=== PATIENT | female | born 1965 | race Caucasian/White ===

== ENCOUNTER 2020-05-20 14:12 | Emergency (ER) | payer OTHER, SELFPAY ==
[2020-05-20 14:24] VITALS: BP 112/79; PULSE 95; RESP 18; TEMP 36.8; O2SAT 100
[2020-05-20 14:46] VITALS: BP 124/65; PULSE 69; RESP 20; O2SAT 100
[2020-05-20 15:12] LABS: Basophils Percent Auto 0.2 % (0.2-1.2); Eosinophils Percent Auto 0.9 % (0-4.4); Hematocrit 42.7 % (37.0-47.0); Hemoglobin 13.7 g/dL (12.0-15.0); Immature Granulocyte Absolute 0.01 K/mm3 (0.00-0.031); Immature Granulocyte Percent A 0.2 % (0-0.5); Lymphocytes Percent Auto 24.2 % (18.3-44.2); Mean Corpuscular HGB Conc 32.1 g/dl (32-36); Mean Corpuscular Hemoglobin 27.2 pg (26-34); Mean Corpuscular Volume 84.9 fl (80-100); Mean Platelet Volume 10.2 fl (7.4-10.4); Monocytes Absolute Auto 0.4 K/mm3 (0.1-0.6); Monocytes Percent Auto 9.5 % (2.6-8.5); Platelet Count Result 263 k/mm3 (150-375); Red Blood Count 5.03 M/mm3 (4.2-5.4); Red Cell Distribution Width 12.4 % (11.5-14.5); White Blood Count 4.6 K/mm3 (4.5-10.0)
[2020-05-20 15:24] LABS: Prothrombin Time 12.6 Seconds (11.1-14.7)
[2020-05-20 15:25] LABS: Partial Thromboplastin Time 26.1 SECONDS (22.3-36.8)
[2020-05-20 15:26] LABS: Alanine Aminotransferase 22 U/L (4-35); Albumin Level 4.2 g/dL (3.5-5.1); Alkaline Phosphatase 70 U/L (38-126); Aspartate Amino Transferase 29 U/L (14-36); Bilirubin,Total 0.7 mg/dL (0.2-1.3); Blood Urea Nitrogen 15 mg/dL (7-17); Calcium 8.7 mg/dL (8.4-10.2); Carbon Dioxide 26 mmol/L (22-30); Chloride 104 mmol/L (98-107); Estimated CRCL calculation 49 ml/min; Estimated Glomerular Filt Rate > 60; Glucose 99 mg/dL (65-105); Lipase 79 U/L (23-300); Potassium 3.6 mmol/L (3.4-5.0); Sodium 139 mmol/L (137-145)
[2020-05-20] MEDS: SODIUM CHLORIDE 0.9% IV 1,000 ML 999 ML IV CONT (15:53)
[2020-05-20] MEDS: ONDANSETRON INJ 4 MG/2 ML VIAL IV PUSH (16:00)
[2020-05-20 16:01] VITALS: BP 136/60; PULSE 78; RESP 20; O2SAT 100
--- NOTE | 2020-05-20 16:25 | ED.NAVMDI ---
HPI - Nausea/Vomiting/Diarrhea General Chief complaint: Nausea/Vomiting/Diarrhea Stated complaint: Nausea, Positive COVID Two Weeks Ago Time Seen by Provider: 05/20/20 14:51 History of Present Illness HPI Narrative: Patient is a 55-year-old female who presents the ER with complaints of abdominal discomfort and nausea. Patient was diagnosed with COVID-19 on 05/16 after being exposed to her son. Come to town from [place] and [place] his roommate was COVID positive but had not received their test back yet. Patient reports she had had symptoms for over a week when she initially got in her test. Patient's main symptoms were fatigue and loss of smell and occasional body aches. She has been afebrile since her test. She is just concerned something versus occurring. She reports she is post be released from her COVID on this today. Patient also reports some left lateral abdominal pain that is been ongoing for 2 months. Unknown cause, no aggravating or alleviating factors. Related Data Allergies Allergy/AdvReac Type Severity Reaction Status Date / Time amoxicillin Allergy Unknown Rash Verified 05/20/20 14:29 Review of Systems Review of Systems: All systems reviewed & are unremarkable except as noted in HPI and below Constitutional: Constitutional: Denies chills, Reports fatigue, Denies fever(s) and Denies weakness ENT: Denies nasal congestion and Denies sore throat Respiratory: Respiratory: Denies cough, Denies dyspnea and Denies wheezing Gastrointestinal: Gastrointestinal: Reports abdominal pain, Denies diarrhea, Reports nausea and Denies vomiting PMFSH Past Medical History Medical History (Updated 05/20/20 @ 17:22 by Tigre Vang MD) No pertinent past medical history Surgical History Surgical History (Updated 05/20/20 @ 16:27 by Tigre Vang MD) History of Family History Family History (Updated 06/18/16 @ 23:19 by DOCTOR UNKNOWN) Mother Hypertension Family history of diabetes mellitus in first degree relative Social History Social History Smoking status: Never smoker Second hand tobacco smoke exposure: No Alcohol intake: current Gender identity (if verbalized by the patient): Female Exam Narrative: Exam Narrative: GENERAL: Well-appearing, well-nourished, and in no acute distress. HEAD: Normocephalic, atraumatic. ENT: Mucous membranes moist. CHEST: Clear to auscultation. No respiratory distress. HEART: Regular rate and rhythm. Normal peripheral pulses. ABDOMEN: Soft, nontender, nondistended. EXTREMITIES: Normal range of motion. No edema. SKIN: Warm, dry, no rash. NEURO: Alert and oriented x3. Course Course Emergency Course: Informed of results. Discharge home with antibiotics for UTI. Vital Signs Vital signs: Vital Signs Temperature 98.3 F 05/20/20 14:24 Pulse Rate 95 05/20/20 14:24 Respiratory Rate 18 05/20/20 14:24 Blood Pressure 112/79 05/20/20 14:24 Pulse Oximetry 100 05/20/20 14:24 Temperature 98.3 F 05/20/20 14:24 Pulse Rate 78 05/20/20 16:01 Respiratory Rate 20 05/20/20 16:01 Blood Pressure 136/60 05/20/20 16:01 Pulse Oximetry 100 05/20/20 16:01 MDM - Nausea/Vomiting/Diarrhea Lab Data Result diagrams: 05/20/20 15:05 05/20/20 15:05 Labs: Lab Results 05/20/20 05/20/20 05/20/20 Range/Units 15:05 15:05 15:05 WBC 4.6 (4.5-10.0) K/mm3 RBC 5.03 (4.2-5.4) M/mm3 Hgb 13.7 (12.0-15.0) g/dL Hct 42.7 (37.0-47.0) % MCV 84.9 (80-100) fl MCH 27.2 (26-34) pg MCHC 32.1 (32-36) g/dl RDW 12.4 (11.5-14.5) % Plt Count 263 (150-375) k/mm3 MPV 10.2 (7.4-10.4) fl Immature Gran % (Auto) 0.2 (0-0.5) % Neut % (Auto) 65.0 (45.5-73.1) % Lymph % (Auto) 24.2 (18.3-44.2) % [place] % (Auto) 9.5 H (2.6-8.5) % Eos % (Auto) 0.9 (0-4.4) % Baso % (Auto) 0.2 (0.2-1.2) % Lymph # (Auto) 1.10 (0.9-3.2) K/mm3 [place] # (Auto) 0.4
[2020-05-20 16:57] LABS: Add Urine Microscopic? YES; Appearance Urine Clear (Clear); Bacteria Urine 2+ /hpf; Bilirubin Urine Negative (Negative); Blood Urine Negative (Negative); Color Urine Straw (Yellow); Glucose Urine UA Negative (Negative); Ketones Urine 1+ mg/dL (Negative); Leukocyte Esterase Ur Trace LEU/UL (Negative); Mucus Urine Rare /lpf; Nitrate Urine Negative (Negative); Protein Urine Negative (Negative); RBC Urine 0-2 /hpf (0-2); Specific Grav Ur 1.008 (1.001-1.035); Squamous Epithelial Cell Urine Moderate /hpf (Few); Urobilinogen Urine Negative mg/dL (<2.0)
[2020-05-20 17:00] VITALS: PULSE 70; RESP 20; O2SAT 100
[2020-05-20 18:16] VITALS: BP 112/66; PULSE 71; RESP 20; O2SAT 100
== END 2020-05-20 18:18 | disposition home or self-care (01) ==
PROVIDERS: Emergency Provider Emergency Medicine; PCP Family Medicine
DX: N39.0 Urinary tract infection, site not specified (principal)
CPT/HCPCS: 36415; 80053; 81001; 83605; 83690; 85025; 85610; 85730; 87086; 96361; 96374; 99284; J2405; J7030

== ENCOUNTER 2020-08-24 12:57 | Emergency (ER) | payer OTHER, SELFPAY ==
[2020-08-24 13:00] VITALS: BP 134/70; PULSE 88; RESP 20; TEMP 36.8; O2SAT 100
[2020-08-24 13:23] LABS: Add Urine Microscopic? NO; Appearance Urine Clear (Clear); Bacteria Urine Trace /hpf; Bilirubin Urine Negative (Negative); Blood Urine Negative (Negative); Color Urine Straw (Yellow); Glucose Urine UA Negative (Negative); Ketones Urine Negative (Negative); Leukocyte Esterase Ur Negative LEU/UL (Negative); Mucus Urine Rare /lpf; Nitrate Urine Negative (Negative); Protein Urine Negative (Negative); RBC Urine 0-2 /hpf (0-2); Specific Grav Ur 1.009 (1.001-1.035); Squamous Epithelial Cell Urine Rare /hpf (Few); Urobilinogen Urine Negative mg/dL (<2.0); WBC Urine 0-3 /hpf
--- NOTE | 2020-08-24 14:14 | ED.GENADULT ---
HPI - General Adult General Chief complaint: Urogenital-Female Stated complaint: frequent urination Time Seen by Provider: 08/24/20 12:59 History of Present Illness HPI narrative: Patient is 55-year-old female who presents to the ER for concerns of UTI. Reports the last couple days she has had frequent urination. No dysuria. No fevers or chills or sweats. No blood in her urine or discoloration. She also reports she has had some mild headache that improves with some ibuprofen. Related Data Home Medications Medication Instructions Recorded Confirmed No Home Medications 08/24/20 08/24/20 Allergies Allergy/AdvReac Type Severity Reaction Status Date / Time amoxicillin Allergy Unknown Rash Verified 08/24/20 13:08 Review of Systems Constitutional: Constitutional: Denies chills, Denies fever(s) and Denies weakness ENT: Denies nasal congestion and Denies sore throat Gastrointestinal: Gastrointestinal: Reports abdominal pain, Denies nausea and Denies vomiting Genitourinary: Genitourinary: Denies hematuria, Reports nocturia and Denies dysuria Neurologic: Reports headache(s), Denies focal weakness and Denies numbness PMFSH Past Medical History Medical History (Updated 08/24/20 @ 14:21 by Tigre Vang MD) No pertinent past medical history Surgical History Surgical History (Updated 05/20/20 @ 16:27 by Tigre Vang MD) History of Family History Family History (Updated 06/18/16 @ 23:19 by DOCTOR UNKNOWN) Mother Hypertension Family history of diabetes mellitus in first degree relative Social History Social History Smoking status: Never smoker Second hand tobacco smoke exposure: No Alcohol intake: current Gender identity (if verbalized by the patient): Female Exam Narrative: Exam Narrative: GENERAL: Well-appearing, well-nourished, and in no acute distress. HEAD: Normocephalic, atraumatic. CHEST: Clear to auscultation. No respiratory distress. HEART: Regular rate and rhythm. Normal peripheral pulses. ABDOMEN: Soft, nontender, nondistended. EXTREMITIES: Normal range of motion. No edema. NEURO: Alert and oriented x3. Course Course Emergency Course: UA negative. Declined additional pain medication for mild frontal headache. Recommend follow-up with PCP should symptoms persist. Tylenol and ibuprofen for headache at home. Vital Signs Vital signs: Vital Signs Temperature 98.2 F 08/24/20 13:00 Pulse Rate 88 08/24/20 13:00 Respiratory Rate 20 08/24/20 13:00 Blood Pressure 134/70 08/24/20 13:00 Pulse Oximetry 100 08/24/20 13:00 Temperature 98.2 F 08/24/20 13:00 Pulse Rate 88 08/24/20 13:00 Respiratory Rate 20 08/24/20 13:00 Blood Pressure 134/70 08/24/20 13:00 Pulse Oximetry 100 08/24/20 13:00 Medical Decision Making Vital Signs Vital Signs: Vital Signs Temperature 98.2 F 08/24/20 13:00 Pulse Rate 88 08/24/20 13:00 Respiratory Rate 20 08/24/20 13:00 Blood Pressure 134/70 08/24/20 13:00 Pulse Oximetry 100 08/24/20 13:00 Temperature 98.2 F 08/24/20 13:00 Pulse Rate 88 08/24/20 13:00 Respiratory Rate 20 08/24/20 13:00 Blood Pressure 134/70 08/24/20 13:00 Pulse Oximetry 100 08/24/20 13:00 Lab Data Labs: Lab Results 08/24/20 Range/Units 13:10 Urine Color Straw (Yellow) Urine Appearance Clear (Clear) Urine pH 7.0 (5.0-9.0) Ur Specific [place] 1.009 (1.001-1.035) Urine Protein Negative (Negative) mg/dL Urine Glucose (UA) Negative (Negative) mg/dL Urine Ketones Negative (Negative) mg/dL Ur Blood (Man) Negative (Negative) Urine Nitrate Negative (Negative) Urine Bilirubin Negative (Negative) Urine Urobilinogen Negative (<2.0) mg/dL Leukocyte Esterase Rfl Negative (Negative) MICHELLE/UL Urine RBC 0-2 (0-2) /hpf Urine WBC 0-3 /hpf Ur Squamous Epith Cells Rare (Few) /hpf Urine Bacteria Trace /hpf Urine Mucus Rare /lpf
--- NOTE | 2020-08-24 14:33 | PC.NURSE ---
this RN to bedside to discharge patient. patient not found in ED room 14 or in department. patient left prior to receiving discharge paperwork. MD aware.
== END 2020-08-24 14:35 | disposition home or self-care (01) ==
PROVIDERS: Emergency Provider Emergency Medicine; PCP Family Medicine
DX: R51.9 Headache, unspecified (principal)
CPT/HCPCS: 81003; 99283

== ENCOUNTER 2020-11-07 11:17 | Outpatient (CLI) | payer OTHER, SELFPAY ==
--- NOTE | ~2020-11-07 | MMUS_ITS ---
EXAMINATION: MM diagnostic lakhwinder BI w collette, US breast LT complete HISTORY: Six-month follow-up for probably benign left breast masses TECHNIQUE: Craniocaudal, mediolateral, and mediolateral oblique 3-D tomosynthesis images of the erlin ts were performed and synthetic 2-D images were generated. CAD analysis was submitted and interpreted . High resolution complete left breast ultrasound was performed including all four quadrants and the subareolar region. COMPARISON: 12/18/2019, 06/08/2019, 05/16/2019, 05/15/2018, 05/04/2017, 05/13/2013 BREAST PARENCHYMAL COMPOSITION: The breasts are heterogeneously dense, which may obscure small masses . FINDINGS: MAMMOGRAPHIC FINDINGS: Multiple stable bilateral breast masses are present. No new suspicious architectural distortion or ca lcification are identified. Scattered benign-appearing calcifications are present. ULTRASOUND: There are multiple stable hypoechoic masses of the left breast. The largest is a 1.7 x 1.1 cm oval, b ilobed, complex cystic and solid mass at the 3:00 location 6 cm from the nipple with posterior acoust ic enhancement and no internal vascularity. The mass demonstrates a stable eccentric solid component which is unchanged over multiple prior ultrasounds. There is a 3 mm round, circumscribed, hypoechoic mass with no posterior features or internal vascularity at the 2:00 location 2 cm from the nipple. IMPRESSION: 1. Probably benign left breast masses. 2. Recommend 6 month follow-up left diagnostic mammogram and ultrasound are recommended. BI-RADS category 3, probably benign findings. Reviewed, dictated and finalized at location A. NO ENFORCEMENT AGENT IMPRESSION: 1. Probably benign left breast masses. 2. Recommend 6 month follow-up left diagnostic mammogram and ultrasound are rec ommended. BI-RADS category 3, probably benign findings.
== END 2020-11-07 11:18 | disposition home or self-care (01) ==
LOC: ANHIMG 11:19
PROVIDERS: PCP Family Medicine; Visit Provider Physician Assistant
DX: R92.8 Other abnormal and inconclusive findings on diagnostic imaging of breast (principal)
CPT/HCPCS: 76641; 77062; 77066; G0279

== ENCOUNTER → 2021-02-09 10:21 | Outpatient (CLI) | payer OTHER, SELFPAY ==
--- NOTE | ~2021-02-09 | US_ITS ---
US abdomen complete EXAMINATION: US Abdomen Complete INDICATION: Generalized abdominal pain PROCEDURE: Realtime High Resolution abdomen ultrasound. COMPARISON: No prior studies for comparison FINDINGS: There are gallstones. Common bile duct measures 3.8 mm. Liver echotexture within normal limits without focal mass. Pancreas within normal limits. Pancreati c tail is obscured by bowel gas. Spleen is unremarkeable. Renal echotexture is within normal limits bilaterally without hydronephrosis, contour deforming mass or renal stone. There are bilateral renal cysts, largest in the left kidney measuring 2.1 cm. Right kidney measures 8.7 cm. Left kidney measure s 10.2 cm. Visualized aspects of the aorta and IVC are within normal limits. Portal vein is patent. No sonograph ic Aburto's sign indicated by the technologist. IMPRESSION: 1: Cholelithiasis. 2: Bilateral renal cysts. Reviewed, dictated and finalized at location A.
== END ==
PROVIDERS: PCP Family Medicine; Visit Provider Physician Assistant
DX: R10.9 Unspecified abdominal pain (principal); K80.20 Calculus of gallbladder without cholecystitis without obstruction; N28.1 Cyst of kidney, acquired
CPT/HCPCS: 76700

== ENCOUNTER 2021-02-25 17:02 | Outpatient (CLI) | payer OTHER, SELFPAY | END 2021-02-25 17:03 | disposition home or self-care (01) | LOC: ANHCOVIDVC 17:02 | PROVIDERS: PCP Family Medicine | DX: Z23 Encounter for immunization (principal) | CPT/HCPCS: 0001A; 91300 ==

== ENCOUNTER 2021-03-18 16:56 | Outpatient (CLI) | payer OTHER, SELFPAY | END 2021-03-18 16:57 | LOC: ANHCOVIDVC 16:56 | PROVIDERS: PCP Family Medicine | DX: Z23 Encounter for immunization (principal) | CPT/HCPCS: 0002A; 91300 ==

== ENCOUNTER 2021-04-05 00:01 | Emergency (ER) | payer OTHER, SELFPAY ==
[2021-04-05 00:03] VITALS: BP 104/50; PULSE 81; RESP 18; TEMP 36.1; O2SAT 100
--- NOTE | 2021-04-05 00:42 | PC.NURSE ---
Pt presents to ED with complaints of nausea, emesis and diarrhea. Pt states she that she was on the toilet having an episode of diarrhea when she loc. Pt states she hit her head and now has a hematoma to right forehead. No laceration or open wounds noted to head or face. Pt has complains of nausea at this time and has no further complaints or concerns at this time. at bedside. Pt alert and oriented x4 and vitals are stable. Pt in no obvious distress at this time. Call button and personal items within reach. Pt advised to press call button for assistance.
--- NOTE | 2021-04-05 00:53 | ED.GENADULT ---
HPI - General Adult General Chief complaint: Nausea/Vomiting/Diarrhea Stated complaint: think I have food poisoning. Time Seen by Provider: 04/05/21 00:53 History of Present Illness HPI narrative: Patient 56-year-old female who presents to emergency department chief complaint of nausea vomiting and diarrhea. Patient reports she ate some [employer] earlier this evening and then started having a diarrhea patient states that she became lightheaded had a brief syncopal episode struck her head had no loss of consciousness the patient states afterwards she then started having multiple episodes of vomiting. The patient reports been able to keep fluids down states she feels very dehydrated patient denies abdominal pain. Patient denies fever patient denies being on blood thinners Related Data Allergies Allergy/AdvReac Type Severity Reaction Status Date / Time amoxicillin Allergy Unknown Rash Verified 04/05/21 00:08 Review of Systems Review of Systems: Narrative: A 10 system review of systems was completed on the patient and is negative except for what is stated in the HPI. Nursing and ancillary documentation was reviewed. PMFSH Past Medical History Medical History No pertinent past medical history Surgical History Surgical History History of Family History Family History Mother Hypertension Family history of diabetes mellitus in first degree relative Social History Social History Smoking status: Never smoker Second hand tobacco smoke exposure: No Alcohol intake: current Substance use: never Gender identity (if verbalized by the patient): Female Exam Narrative: Exam Narrative: GENERAL: Well-appearing, well-nourished, and in no acute distress. HEAD: Normocephalic, there is a small contusion present to the right forehead. EYES: PERRLA and EOMI. ENT: Nares clear, no rhinorrhea or epistaxis. Mucous membranes moist. NECK: Supple. CHEST: Clear to auscultation. No respiratory distress. HEART: Regular rate and rhythm. No murmur heard. Normal peripheral pulses. ABDOMEN: Soft, nontender, nondistended, normal active bowel sounds. EXTREMITIES: Normal range of motion. No edema. SKIN: Warm, dry, no rash. NEURO: No focal deficits. Alert and oriented x3. PSYCH: Normal mood and affect. Course Vital Signs Vital signs: Vital Signs Temperature 36.1 C L 04/05/21 00:03 Pulse Rate 81 04/05/21 00:03 Respiratory Rate 18 04/05/21 00:03 Blood Pressure 104/50 L 04/05/21 00:03 Pulse Oximetry 100 04/05/21 00:03 Temperature 37.7 C H 04/05/21 01:31 Pulse Rate 77 04/05/21 02:28 Respiratory Rate 20 04/05/21 02:28 Blood Pressure 97/60 L 04/05/21 02:28 Pulse Oximetry 100 04/05/21 02:28 Medical Decision Making Vital Signs Vital Signs: Vital Signs Temperature 36.1 C L 04/05/21 00:03 Pulse Rate 81 04/05/21 00:03 Respiratory Rate 18 04/05/21 00:03 Blood Pressure 104/50 L 04/05/21 00:03 Pulse Oximetry 100 04/05/21 00:03 Temperature 37.7 C H 04/05/21 01:31 Pulse Rate 77 04/05/21 02:28 Respiratory Rate 20 04/05/21 02:28 Blood Pressure 97/60 L 04/05/21 02:28 Pulse Oximetry 100 04/05/21 02:28 Lab Data Result diagrams: 04/05/21 01:06 04/05/21 01:06 Labs: Lab Results 04/05/21 04/05/21 04/05/21 Range/Units 01:06 01:06 02:18 WBC 13.1 H (4.5-10.0) K/mm3 RBC 4.85 (4.2-5.4) M/mm3 Hgb 13.3 (12.0-15.0) g/dL Hct 42.0 (37.0-47.0) % MCV 86.6 (80-100) fl MCH 27.4 (26-34) pg MCHC 31.7 L (32-36) g/dl RDW 13.1 (11.5-14.5) % Plt Count 272 (150-375) k/mm3 MPV 10.5 H (7.4-10.4) fl Immature Gran % (Auto) 0.5 (0-0.5) % Neut % (Auto)
--- NOTE | 2021-04-05 00:55 | PC.NURSE ---
EDMD presented to bedside.
[2021-04-05 01:19] LABS: Basophils Percent Auto 0.2 % (0.2-1.2); Eosinophils Absolute Auto 0.1 K/mm3 (0-0.3); Eosinophils Percent Auto 0.7 % (0-4.4); Hemoglobin 13.3 g/dL (12.0-15.0); Immature Granulocyte Absolute 0.06 K/mm3 (0.00-0.031); Immature Granulocyte Percent A 0.5 % (0-0.5); Lymphocytes Absolute Auto 0.77 K/mm3 (0.9-3.2); Lymphocytes Percent Auto 5.9 % (18.3-44.2); Mean Corpuscular HGB Conc 31.7 g/dl (32-36); Mean Corpuscular Hemoglobin 27.4 pg (26-34); Mean Corpuscular Volume 86.6 fl (80-100); Mean Platelet Volume 10.5 fl (7.4-10.4); Monocytes Absolute Auto 0.6 K/mm3 (0.1-0.6); Monocytes Percent Auto 4.7 % (2.6-8.5); Neutrophils Absolute Auto 11.5 K/mm3 (1.3-6.7); Platelet Count Result 272 k/mm3 (150-375); Red Blood Count 4.85 M/mm3 (4.2-5.4); Red Cell Distribution Width 13.1 % (11.5-14.5); White Blood Count 13.1 K/mm3 (4.5-10.0)
[2021-04-05 01:27] LABS: Alanine Aminotransferase 18 U/L (4-35); Albumin Level 4.6 g/dL (3.5-5.1); Alkaline Phosphatase 60 U/L (38-126); Anion Gap 6 mmol/L (8-16); Aspartate Amino Transferase 28 U/L (14-36); Bilirubin,Total 0.8 mg/dL (0.2-1.3); Blood Urea Nitrogen 22 mg/dL (7-17); Calcium 9.4 mg/dL (8.4-10.2); Carbon Dioxide 27 mmol/L (22-30); Chloride 105 mmol/L (98-107); Estimated CRCL calculation 49 ml/min; Estimated Glomerular Filt Rate > 60; Glucose 126 mg/dL (65-105); Lipase 90 U/L (23-300); Potassium 4.1 mmol/L (3.4-5.0); Sodium 138 mmol/L (137-145)
[2021-04-05] MEDS: SODIUM CHLORIDE 0.9% IV 2,000 ML 999 ML IV CONT (01:27)
[2021-04-05] MEDS: ONDANSETRON INJ 4 MG/2 ML VIAL IV PUSH (01:28)
[2021-04-05 01:31] VITALS: BP 109/53; PULSE 64; RESP 15; TEMP 37.7; O2SAT 100
--- NOTE | 2021-04-05 01:31 | PC.NURSE ---
Pt ambulated in hill to restroom to provide urine specimen.
[2021-04-05 02:28] VITALS: BP 97/60; PULSE 77; RESP 20; O2SAT 100
--- NOTE | 2021-04-05 02:29 | PC.NURSE ---
Pt states that she feels better and denies nausea and emesis at this time. PO challenge in progress.
--- NOTE | 2021-04-05 02:30 | PC.NURSE ---
EDMD presented to bedside to update pt on poc. Call button and personal items within reach.
[2021-04-05 02:41] LABS: Add Urine Microscopic? YES; Appearance Urine Cloudy (Clear); Bacteria Urine Trace /hpf; Bilirubin Urine Negative (Negative); Blood Urine 1+ (Negative); Calcium Oxalate Crystals Urine Present /hpf; Color Urine Yellow (Yellow); Glucose Urine UA Negative (Negative); Ketones Urine 1+ mg/dL (Negative); Leukocyte Esterase Ur Trace LEU/UL (Negative); Mucus Urine Moderate /lpf; Nitrate Urine Negative (Negative); Protein Urine 1+ mg/dL (Negative); RBC Urine 0-2 /hpf (0-2); Specific Grav Ur 1.027 (1.001-1.035); Squamous Epithelial Cell Urine Rare /hpf (Few); Urobilinogen Urine Negative mg/dL (<2.0)
--- NOTE | 2021-04-05 03:10 | PC.NURSE ---
EDMD presented to bedside to update pt on poc and all questions and concerns addressed.
--- NOTE | 2021-04-05 03:10 | PC.NURSE ---
Pt tolerate PO challenge well. No nausea and emesis noted. Pt resting on cart and remain at bedside. vitals are stable and pt in n obvious distress.
--- NOTE | 2021-04-05 03:21 | PC.NURSE ---
Pt ambulated in hill to restroom with steady gait and is now back in room resting on cart in its lowest position. Call button and personal items within reach. Pt advised to press call button for assistance.
[2021-04-05 03:57] VITALS: BP 103/65; PULSE 78; RESP 19; TEMP 36.8; O2SAT 98
[2021-04-05 03:59] VITALS: BP 103/65; PULSE 78; RESP 19; TEMP 36.8; O2SAT 98
== END 2021-04-05 04:07 | disposition home or self-care (01) ==
PROVIDERS: Emergency Provider Emergency Medicine; PCP Family Medicine
DX: R55 Syncope and collapse (principal); S09.90XA Unspecified injury of head, initial encounter; W01.10XA Fall on same level from slipping, tripping and stumbling with subsequent striking against unspecified object, initial encounter; R82.998 Other abnormal findings in urine
CPT/HCPCS: 36415; 80053; 81001; 83690; 85025; 87086; 87088; 96361; 96374; 99284; J2405; J7030

== ENCOUNTER 2021-07-02 13:19 | Outpatient (CLI) | payer OTHER, SELFPAY ==
--- NOTE | ~2021-07-02 | MMUS_ITS ---
EXAMINATION: MM diagnostic lakhwinder LT w collette, US breast LT limited HISTORY: Follow-up left breast masses TECHNIQUE: Additional 3-D tomosynthesis images of the left breast were performed and synthetic 2-D im ages were generated. CAD analysis was submitted and interpreted. High resolution Limited left breast ultrasound was performed. COMPARISON: Comparison to multiple prior studies sequentially, with oldest reviewed study dated 05/04. BREAST PARENCHYMAL COMPOSITION: The breasts are heterogenously dense, which may obscure small masses. FINDINGS: MAMMOGRAPHIC FINDINGS: There are multiple left breast masses which are partially obscured by fibroglandular tissue. There ar e scattered benign-appearing calcifications. No architectural distortion is identified. ULTRASOUND: Left breast ultrasound: At 2:00, 2 cm from the nipple, there is a round hypoechoic mass with subtle p osterior acoustic enhancement measuring 11 x 10 x 10 mm. No internal vascularity. At the same locatio n there is an oval hypoechoic mass measuring 4 mm with parallel orientation, no significant posterior features or internal vascularity. The largest dominant mass at 2:00 has diminished in size compared with prior examination dated 06/08/2019. The smaller lesion is unchanged. At 3:00, 2 cm from the nippl e, there is an oval hypoechoic mass measuring 7 mm without significant posterior features or internal vascularity, unchanged. This mass is unchanged. At 3:00, 6 cm from the nipple there is an oval hypoe choic mass measuring 7 mm without significant posterior features or internal vascularity. At 6:00, 5 cm from the nipple there is a 3 mm cyst. IMPRESSION: 1. Stable benign-appearing left breast masses by mammography and ultrasound. No evidence for malignan cy. 2. Routine yearly screening mammogram and regular clinical breast examination are recommended. BI-RADS Category 2: Benign finding(s). Reviewed, dictated and finalized at location A. IMPRESSION: 1. Stable benign-appearing left breast masses by mammography and ultrasound. No evidence for malignancy. 2. Routine yearly screening mammogram and regular clinical breast examination a re recommended. BI-RADS Category 2: Benign finding(s).
== END 2021-07-02 13:20 | disposition home or self-care (01) ==
LOC: ANHIMG 13:21
PROVIDERS: PCP Family Medicine; Visit Provider Physician Assistant
DX: R92.8 Other abnormal and inconclusive findings on diagnostic imaging of breast (principal)
CPT/HCPCS: 76642; 77061; 77065; G0279

== ENCOUNTER 2022-04-12 09:39 | Outpatient (CLI) | payer OTHER, SELFPAY ==
--- NOTE | ~2022-04-12 | DEXA_ITS ---
Bone Density Report Name: EMIGDIO RAMOS Age: 57 Sex: Female Ethnicity: White Date of : 1965 Indication: osteopenia; postmenopausal Referring Provider: CYNTHIA ROCHA Study: Bone densitometry was performed. Exam Date: April 12, 2022 Accession number: [id number] Bone Density: Region BMD T-score Z-score Classification AP Spine(L1-L4) 0.779 -2.4 -1.2 Osteopenia Femoral Neck (Left) 0.685 -1.5 -0.3 Osteopenia Total Hip (Left) 0.848 -0.8 0.1 Normal Femoral Neck (Right) 0.659 -1.7 -0.5 Osteopenia Total Hip (Right) 0.877 -0.5 0.3 Normal Total Hip Mean 0.862 -0.7 0.2 Normal World Health Organization criteria for BMD impression classify patients as: Normal (T-score at or above -1.0), Osteopenia (T-score between -1.0 and -2.5), or Osteoporosis (T-score at or below -2.5). 10-year Fracture Risk(1): Major Osteoporotic Fracture 7.1% Hip Fracture 0.8% Reported Risk Factors: [place] (), Neck BMD=0.659, BMI=20.2 (1) FRAX(R) Version 3.08. Fracture probability calculated for an untreated patient. Fracture probability may be lower if the patient has received treatment. Previous Exams: Region Exam Age BMD T-score BMD Change BMD Change Date g/cm2 vs Baseline vs Previous AP Spine (L1-L4) 04/12/2022 57 0.779 -2.4 -0.076 (-8.8%) -0.033 (-4.1%) 09/10/2019 54 0.812 -2.1 -0.042 (-5.0%) -0.042 (-5.0%) 11/01/2016 51 0.855 -1.7 Total Hip(Left) 04/12/2022 57 0.848 -0.8 -0.035 (-4.0%) -0.084 (-9.0%) 09/10/2019 54 0.931 -0.1 0.049 (5.5%)* 0.049 (5.5%)* 11/01/2016 51 0.882 -0.5 Total Hip(Right) 04/12/2022 57 0.877 -0.5 0.005 (0.6%) -0.019 (-2.2%) 09/10/2019 54 0.896 -0.4 0.025 (2.8%) 0.025 (2.8%) 11/01/2016 51 0.872 -0.6 *Denotes significance at 95% confidence level, LSC for AP Spine = 0.022 g/cm2, LSC for Total Hip = 0.027 g/cm2 Clinical Information Provided by Patient: Patient maximum height was 61 Menopause Age: 52 Drinks caffeinated beverages Onset of menses at age 13 Number of children 2 Impression: The patient has low bone mass, based on the Total Spine T-score. The patient has an estimated ten-year risk of hip fracture of 0.8% and an estimated ten-year risk of major fracture of 7.1%, based on the WHO FRAX algorithm. The BMD for the AP Spine (L1-L4) decreased, changing by -4.1% since the last DXA exam. The BMD for the Total Hip(Left) decreased, changing by -9.0% since
== END 2022-04-12 09:40 | disposition home or self-care (01) ==
LOC: ANHIMG 09:40
PROVIDERS: PCP Family Medicine; Visit Provider Physician Assistant
DX: Z78.0 Asymptomatic menopausal state (principal); M85.88 Other specified disorders of bone density and structure, other site; M85.852 Other specified disorders of bone density and structure, left thigh; M85.851 Other specified disorders of bone density and structure, right thigh
CPT/HCPCS: 77080

== ENCOUNTER 2022-08-30 08:46 | Outpatient (CLI) | payer OTHER, SELFPAY ==
--- NOTE | ~2022-08-30 | MM_ITS ---
EXAMINATION: MM screening lakhwinder BI w collette HISTORY: Screening TECHNIQUE: Craniocaudal and mediolateral oblique 3-D tomosynthesis images were obtained and synthetic 2-D images were generated. CAD analysis was submitted and interpreted. COMPARISON: No prior mammogram is available for comparison at this institution. BREAST PARENCHYMAL COMPOSITION: The breasts are extremely dense, which lowers the sensitivity of mamm ography FINDINGS: Stable bilateral breast calcifications and left breast masses allowing for differences of t echnique. There is no evidence of suspicious mass, calcification, or architectural distortion to sugg est malignancy in either breast. There has been no suspicious interval change. IMPRESSION: 1. No mammographic evidence of malignancy. 2. Recommend routine screening mammography in one year. BI-RADS Category 2: Benign finding(s). Reviewed, dictated and finalized at location A.
== END 2022-08-30 08:47 | disposition home or self-care (01) ==
LOC: ANHIMG 08:48
PROVIDERS: PCP Family Medicine; Visit Provider Family Medicine
DX: Z12.31 Encounter for screening mammogram for malignant neoplasm of breast (principal)
CPT/HCPCS: 77063; 77067

== ENCOUNTER 2024-02-06 13:43 | Outpatient (CLI) | payer OTHER, SELFPAY ==
--- NOTE | ~2024-02-06 | MM_ITS ---
EXAMINATION: MM screening lakhwinder BI w collette HISTORY: Screening TECHNIQUE: Craniocaudal and mediolateral oblique 3-D tomosynthesis images were obtained and synthetic 2-D images were generated. CAD analysis was submitted and interpreted. COMPARISON: Comparison to multiple prior studies sequentially, with oldest reviewed study dated 05/16 BREAST PARENCHYMAL COMPOSITION: Dense: The breasts are heterogeneously dense, which may obscure small masses FINDINGS: There are enlarging masses in the upper outer quadrant and central aspect of the left breas t.. The right breast is stable without evidence for malignancy. IMPRESSION: 1. Enlarging left breast masses. 2. Additional mammographic views and possible breast ultrasound are recommended. BI-RADS Category 0: Incomplete: Needs additional imaging evaluation. Reviewed, dictated and finalized at location A. IMPRESSION: 1. Enlarging left breast masses. 2. Additional mammographic views and possible breast ultrasound are recommended . BI-RADS Category 0: Incomplete: Needs additional imaging evaluation.
== END 2024-02-06 13:44 | disposition home or self-care (01) ==
LOC: ANHIMG 13:49
PROVIDERS: PCP Family Medicine; Visit Provider Family Medicine
DX: Z12.31 Encounter for screening mammogram for malignant neoplasm of breast (principal); R92.8 Other abnormal and inconclusive findings on diagnostic imaging of breast
CPT/HCPCS: 77063; 77067

== ENCOUNTER 2024-03-12 12:12 | Outpatient (CLI) | payer OTHER, SELFPAY ==
--- NOTE | ~2024-03-12 | MMUS_ITS ---
EXAMINATION: MM diagnostic lakhwinder LT w collette, US breast LT limited HISTORY: Left breast masses reported in upper outer quadrant and central left breast TECHNIQUE: Additional 3-D tomosynthesis images of the left breast were performed and synthetic 2-D im ages were generated. CAD analysis was submitted and interpreted. High resolution upper outer and lowe r-outer quadrant left breast ultrasound was performed. COMPARISON: February 06, 2024 bilateral screening mammogram FINDINGS: MAMMOGRAPHIC FINDINGS: Benign calcifications are noted. There is a circumscribed partially calcified approximately 8.5 mm ma ss in the upper outer left breast, benign in appearance. There is a circumscribed 5.8 mm opacity with halo sign in the outer mid left breast, benign in appearance. No suspicious mass lesion is identified ULTRASOUND: 1:00 near nipple: 4.4 x 3.4 mm circumscribed sonolucency without internal vascularity, likely a cyst 2:00 4 cm from nipple: 8.2 x 6.8 x 8.4 mm circumscribed hypoechoic lesion with through transmission, posterior enhancement, no internal vascularity, most likely benign 4:00 near nipple: Shadowing from a benign calcified microhematoma. IMPRESSION: 1. Benign findings 2. Routine annual mammographic screening is recommended BI-RADS Category 2: Benign finding(s). Reviewed, dictated and finalized at location A. IMPRESSION: 1. Benign findings 2. Routine annual mammographic screening is recommended BI-RADS Category 2: Benign finding(s).
== END 2024-03-12 12:13 | disposition home or self-care (01) ==
PROVIDERS: PCP Family Medicine; Visit Provider Family Medicine
DX: R92.8 Other abnormal and inconclusive findings on diagnostic imaging of breast (principal)
CPT/HCPCS: 76642; 77061; 77065; G0279

== ENCOUNTER 2024-03-14 03:04 | Emergency (ER) | payer OTHER, SELFPAY ==
[2024-03-14 03:28] VITALS: BP 132/66; PULSE 90; RESP 15; O2SAT 100
[2024-03-14 03:37] LABS: Bacteria Urine Rare /hpf; Non Pathogenic Casts 0-2; RBC Urine 21-50 /hpf (0-2); Squamous Epithelial Cell Urine None Seen /hpf (Few); WBC Urine >100 /hpf (0-3)
[2024-03-14 03:59] LABS: Appearance Urine Cloudy (Clear); Bilirubin Urine Negative (Negative); Blood Urine 3+ (Negative); Glucose Urine UA Negative (Negative); Ketones Urine Negative (Negative); Leukocyte Esterase Ur 3+ LEU/UL (Negative); Nitrate Urine Negative (Negative); Protein Urine 2+ mg/dL (Negative); Urobilinogen Urine 0.2 mg/dL (<2.0); pH Urine 6.5 (5.0-9.0)
[2024-03-14 04:00] LABS: Color Urine Light Red (Yellow)
[2024-03-14 04:01] LABS: Add Urine Microscopic? YES; Specific Grav Ur 1.005 (1.001-1.035)
[2024-03-14] MEDS: PHENAZOPYRIDINE HCL 100 MG TABLET 200 MG PO (04:55)
--- NOTE | 2024-03-14 04:56 | ED.FEMALEGU ---
HPI - Female Genitourinary General Chief complaint: Urogenital-Female Stated complaint: Urinary symptoms Time Seen by Provider: 03/14/24 04:52 History of Present Illness HPI Narrative: Patient is a 58-year-old male who presents to the emergency department this evening complaining of dysuria. Patient states that she started to notice that she was having symptoms of urinary tract infection so she took an azo pill which she bought off the counter. Patient states that ever since she took that both she has not stopped urinating. Patient denies any fevers or chills, any flank pain, any nausea or vomiting any chest pain. She denies any additional symptoms at this time. Related Data Allergies Allergy/AdvReac Type Severity Reaction Status Date / Time amoxicillin Allergy Unknown Rash Verified 09/19/23 08:54 Review of Systems Review of Systems: All systems are reviewed and are negative unless stated otherwise in the HPI. [facility] Past Medical History Medical History No pertinent past medical history Surgical History Surgical History History of Family History Family History Mother Hypertension Family history of diabetes mellitus in first degree relative Social History Social History Smoking status: Never smoker Second hand tobacco smoke exposure: No Alcohol intake: current Substance use: never Substance use type: does not use Living arrangements: with family Occupation/Education: occupation Gender identity (if verbalized by the patient): Female Sexual Orientation (if Verbalized by the Patient): Straight or Heterosexual Exam Narrative: General: Alert, awake, afebrile, in no acute distress. Cardiovascular: Regular rate and rhythm, no murmurs, rubs or gallops, no peripheral edema. Respiratory: Clear to auscultation bilaterally, no tachypnea, no wheezing, no rhonchi, no rubs, no respiratory distress. Abdomen: Soft, nontender, nondistended, no rebound, no guarding, no peritoneal signs. Musculoskeletal: No joint swelling or deformity, normal muscle tone. Skin: No rashes or petechia, no signs of infection. Psychiatric: Alert and oriented, normal behavior and judgment for situation. Neurological: Alert and oriented to person, place, and time. Follows all commands. No focal deficits, speech is clear and fluent. Course Vital Signs Vital signs: Vital Signs Pulse Rate 90 03/14/24 03:28 Respiratory Rate 15 03/14/24 03:28 Blood Pressure 132/66 03/14/24 03:28 Pulse Oximetry 100 03/14/24 03:28 Oxygen Delivery Room Air 03/14/24 03:28 Pulse Rate 90 03/14/24 03:28 Respiratory Rate 15 03/14/24 03:28 Blood Pressure 132/66 03/14/24 03:28 Pulse Oximetry 100 03/14/24 03:28 Oxygen Delivery Room Air 03/14/24 03:28 MDM - Female Genitourinary MDM Narrative Medical decision making narrative: The patient was evaluated by myself in the emergency department. History is obtained from patient who is an independent historian and physical exam was performed. External medical records were reviewed at this time. IV was established and pertinent tests were ordered. Urinalysis obtained revealed a urinary tract infection. At this time, patient was administered 1 g of IV Rocephin and 200 mg of oral Pyridium. Differential diagnosis considerations include urinary tract infection, additional differentials include pyelonephritis although unlikely given lack of fevers or flank pain. Comorbidities impacting this visit include none. I have evaluated and discussed social determinants of health with the patient that could potentially impact subsequent diagnosis and treatment plans. On repeat assessment of the patient, reevaluation revealed that the patient is do
[2024-03-14 05:53] VITALS: BP 130/68; PULSE 71; RESP 18; O2SAT 100
== END 2024-03-14 05:54 | disposition home or self-care (01) ==
PROVIDERS: Emergency Provider Emergency Medicine; PCP Family Medicine
DX: N39.0 Urinary tract infection, site not specified (principal)
CPT/HCPCS: 81001; 81025; 87077; 87086; 87088; 87186; 96365; 99284; A9270; J0696

== ENCOUNTER 2025-02-12 13:14 | Outpatient (CLI) | payer OTHER, SELFPAY ==
--- NOTE | ~2025-02-12 | DEXA_ITS ---
Bone Density Report Name: EMIGDIO RAMOS Age: 59 Sex: Female Ethnicity: White Date of : 1965 Indication: osteopenia; Referring Provider: LUZ TRUJILLO Study: Bone densitometry was performed. Exam Date: February 12, 2025 Accession number: [id number] Bone Density: Region BMD T-score Z-score Classification AP Spine(L1-L4) 0.746 -2.7 -1.3 Osteoporosis Femoral Neck (Left) 0.705 -1.3 0.0 Osteopenia Total Hip (Left) 0.864 -0.6 0.4 Normal Femoral Neck (Right) 0.636 -1.9 -0.6 Osteopenia Total Hip (Right) 0.884 -0.5 0.5 Normal Total Hip Mean 0.874 -0.6 0.5 Normal World Health Organization criteria for BMD impression classify patients as: Normal (T-score at or above -1.0), Osteopenia (T-score between -1.0 and -2.5), or Osteoporosis (T-score at or below -2.5). 10-year Fracture Risk: FRAX not reported because: Some T-score for Spine Total or Hip Total or Femoral Neck at or below -2.5 Previous Exams: Region Exam Age BMD T-score BMD Change BMD Change Date g/cm2 vs Baseline vs Previous AP Spine (L1-L4) 02/12/2025 59 0.746 -2.7 -0.109 (-12.7% -0.033 (-4.2%) 04/12/2022 57 0.779 -2.4 -0.076 (-8.8%) -0.033 (-4.1%) 09/10/2019 54 0.812 -2.1 -0.042 (-5.0%) -0.042 (-5.0%) 11/01/2016 51 0.855 -1.7 Total Hip(Left) 02/12/2025 59 0.864 -0.6 -0.018 (-2.1%) 0.017 (2.0%)# 04/12/2022 57 0.848 -0.8 -0.035 (-4.0%) -0.084 (-9.0%) 09/10/2019 54 0.931 -0.1 0.049 (5.5%)* 0.049 (5.5%)* 11/01/2016 51 0.882 -0.5 Total Hip(Right) 02/12/2025 59 0.884 -0.5 0.013 (1.5%)# 0.007 (0.8%)# 04/12/2022 57 0.877 -0.5 0.005 (0.6%) -0.019 (-2.2%) 09/10/2019 54 0.896 -0.4 0.025 (2.8%) 0.025 (2.8%) 11/01/2016 51 0.872 -0.6 *Denotes significance at 95% confidence level, LSC for AP Spine = 0.022 g/cm2, LSC for Total Hip = 0.027 g/cm2 # Denotes dissimilar scan types or analysis methods Clinical Information Provided by Patient: Patient maximum height was 61 Menopause Age: 52 No regular weight bearing exercise Drinks caffeinated beverages Onset of menses at age 13 Number of children 2 Impression: The patient has osteoporosis, based on the Total Spine T-score. No significant bone loss was observed. Discussion: INCREASED RISK OF FRACTURE. BONE DENSITY IS UNDESIRABLY LOW AT ONE OR MORE SKELETAL SITES, CONSISTENT WITH POSTMENOPAUSAL OSTEOPOROSIS. This patient's lowest T-score meets the World Health Organization's (WHO) criteria for osteoporosis at one or more sites (T-score -2.5 or below). In untreated patients, the risk of osteoporotic fracture increases approximately two-fold for each 1.0 SD decrease in T-score. Low bone density is not the only risk factor for fracture; also consider factors such as patient's age, frailty or poor health, risk of falling, risk of injury, previous osteoporotic fracture, family history of osteoporosis, cigarette smoking, low body weight, etc. Not everyone with low bone mineral density has osteoporosis; osteomalacia and other metabolic bone disorders should also be considered. Patients who have osteoporosis should be evaluated for specific diseases and conditions (secondary causes) that may cause or contribute to bone loss. The [place] [employer] (AACE) and National Osteoporosis Foundation (NOF) recommend pharmacologic intervention for all postmenopausal women whose T-score is in this range. The patient should follow a healthful lifestyle (good nutrition with adequate calcium and vitamin D, and appropriate weight-bearing exercise). Follow-Up: Consider a repeat BMD and Vertebral Fracture Assessment (VFA) exam in 2 years or sooner if medically necessary, to reassess this patient's status. Reported by: EDEL on 02/12/2025 1:48:00 PM. Reviewed, dictated and finalized at location AFunmi [facility]
== END 2025-02-12 13:15 | disposition home or self-care (01) ==
LOC: ANHIMG 13:17
PROVIDERS: PCP Family Medicine; Visit Provider Family Medicine
DX: Z78.0 Asymptomatic menopausal state (principal); M81.0 Age-related osteoporosis without current pathological fracture; M85.852 Other specified disorders of bone density and structure, left thigh; M85.851 Other specified disorders of bone density and structure, right thigh
CPT/HCPCS: 77080

== ENCOUNTER 2025-03-13 08:17 | Outpatient (CLI) | payer OTHER, SELFPAY ==
--- NOTE | ~2025-03-13 | MM_ITS ---
EXAMINATION: MM screening [facility] BI w [facility] HISTORY: Screening TECHNIQUE: Craniocaudal and mediolateral oblique 3-D tomosynthesis images were obtained and synthetic 2-D images were generated. CAD analysis was submitted and interpreted. COMPARISON: Comparison to multiple prior studies sequentially, with oldest reviewed study dated 10/21. BREAST PARENCHYMAL COMPOSITION: Dense: The breasts are heterogeneously dense, which may obscure small masses FINDINGS: There are benign-appearing masses in the left breast which is diminished in size time, cons istent with combined masses. There is no evidence of suspicious mass, calcification, or architectural distortion to suggest malignancy in either breast. There has been no suspicious interval change. IMPRESSION: 1. No mammographic evidence of malignancy. 2. Recommend routine screening mammography in one year. BI-RADS Category 2: Benign finding(s). Reviewed, dictated and finalized at location A.
== END 2025-03-13 08:18 | disposition home or self-care (01) ==
LOC: ANHIMG 08:21
PROVIDERS: PCP Family Medicine; Visit Provider Family Medicine
DX: Z12.31 Encounter for screening mammogram for malignant neoplasm of breast (principal)
CPT/HCPCS: 77063; 77067